=== PATIENT | male | born 1965 | race Hispanic/Latino ===

== ENCOUNTER 2018-11-06 21:26 | Emergency (ER) | payer SELFPAY ==
[2018-11-06 21:26] VITALS: BMI 20.9
[2018-11-06 22:45] LABS: URINE BILIRUBIN NEGATIVE (NEGATIVE); URINE BLOOD NEGATIVE (NEGATIVE); URINE CALCIUM OXALATE CRYSTALS MOD /hpf (<OCC); URINE CLARITY Clear (Clear); URINE COLOR Yellow (YELLOW); URINE GLUCOSE (UA) NORMAL (Normal); URINE LEUKOCYTE ESTERASE NEG Leu/uL (Negative); URINE PROTEIN NEGATIVE (NEGATIVE)
[2018-11-06 22:52] LABS: BASO # 0.1 K/uL (0.0-0.2); BASO % 0.9 % (0.0-2.0); EOS # 0.2 K/uL (0.0-0.7); EOS % 3.5 % (0.0-4.0); HEMOGLOBIN 11.1 g/dL (12.0-18.0); LYMPH # 1.5 K/uL (1.0-4.3); LYMPH % 25.6 % (20.0-40.0); MEAN CORPUSCULAR HEMOGLOBIN 31.3 pg (27.0-31.0); MEAN CORPUSCULAR HGB CONC 33.6 g/dL (33.0-37.0); MEAN PLATELET VOLUME 7.9 fL (7.2-11.7); MONO # 0.4 K/uL (0.0-0.8); MONO % 7.2 % (0.0-10.0); NEUT # 3.6 K/uL (1.8-7.0); NEUT % 62.8 % (50.0-75.0); RBC 3.55 Mil/uL (4.40-5.90); RED CELL DISTRIBUTION WIDTH 12.6 % (11.5-14.5); WHITE BLOOD COUNT 5.7 K/uL (4.8-10.8)
[2018-11-06 22:57] LABS: BARBITURATES, UR NEGATIVE (NEGATIVE); BENZODIAZEPINES, UR NEGATIVE (NEGATIVE); PHENCYCLIDINE, UR NEGATIVE (NEGATIVE)
[2018-11-06 23:00] LABS: OPIATES, UR POSITIVE (NEGATIVE)
[2018-11-06 23:08] LABS: ALB/GLOB RATIO 1.3 (1.0-2.1); ALBUMIN 4.3 g/dL (3.5-5.0); ALT/SGPT 26 U/L (21-72); AST/SGOT 47 U/L (17-59); BLOOD UREA NITROGEN 19 mg/dL (9-20); CALCIUM 9.4 mg/dl (8.6-10.4); GFR NON-AFRICAN AMERICAN > 60
--- NOTE | 2018-11-06 23:49 | C.PDOC ---
History Of Present Illness 53 year old male brought in by EMS for public intoxication and acting bizarre in the street. As per EMS, patient was vacillating between somnolent and hyper aggressive behavior. Upon arrival patient was loud, agitated, hyper aggressive, but cooperative. Denies any complaints or heroin/opiod use. Time Seen by Provider: 11/06/18 21:33 Chief Complaint (Nursing): Substance Abuse History Per: Patient, EMS History/Exam Limitations: no limitations Onset/Duration Of Symptoms: Hrs Current Symptoms Are (Timing): Still Present Involuntary Hold By: None Recent travel outside of the [place]: No Past Medical History Reviewed: Historical Data, Nursing Documentation, Vital Signs Vital Signs: Last Vital Signs Temp 98.1 F 11/06/18 21:36 Pulse 77 11/06/18 21:36 Resp 20 11/06/18 21:36 BP 127/79 11/06/18 21:36 Pulse Ox 97 11/06/18 21:36 - Medical History PMH: Back Problems (hx. surgery), Bronchitis Denies: HIV, HTN, Chronic Kidney Disease, Seizures, Sexually Transmitted Disease Surgical History: Back Surgery (herniated disc), Hernia Repair - [facility] Procedures INJECT/INFUSE NEC (10/27/14) TETANUS TOXOID ADMINIST (02/03/14) Family History: States: CAD - Social History Hx Tobacco Use: Yes Hx Alcohol Use: Yes Hx Substance Use: Yes - Immunization History Hx Tetanus Toxoid Vaccination: No Hx Influenza Vaccination: No Hx Pneumococcal Vaccination: No Review Of Systems Review Of Systems: ROS cannot be obtained secondary to pt's inabilty to answer questions. (Due to intoxication) Physical Exam - Physical Exam Appears: Non-toxic Skin: Warm, Other (Excoriated lesions to bilateral arms and legs) Head: Atraumatic, Normacephalic Eye(s): bilateral: Normal Inspection Oral Mucosa: Moist Teeth: Other (Poor dentition) Chest: Symmetrical, No Tenderness Cardiovascular: Rhythm Regular Respiratory: Normal Breath Sounds, No Rales, No Rhonchi, No Wheezing Gastrointestinal/Abdominal: Soft, No Tenderness Neurological/Psych: Other (AAO) ED Course And Treatment - Laboratory Results Result Diagrams: 11/06/18 22:49 11/06/18 22:38 Lab Results: Total Bilirubin 0.5 mg/dL (0.2-1.3) 11/06/18 22:38 AST 47 U/L (17-59) 11/06/18 22:38 ALT 26 U/L (21-72) 11/06/18 22:38 Alkaline Phosphatase 105 U/L (38-126) 11/06/18 22:38 Total Protein 7.6 g/dL (6.3-8.3) 11/06/18 22:38 Albumin 4.3 g/dL (3.5-5.0) 11/06/18 22:38 Globulin 3.3 gm/dL (2.2-3.9) 11/06/18 22:38 Albumin/Globulin Ratio 1.3 (1.0-2.1) 11/06/18 22:38 Urine Color Yellow (YELLOW) 11/06/18 22:38 Urine Clarity Clear (Clear) 11/06/18 22:38 Urine pH 5.0 (5.0-8.0) 11/06/18 22:38 Ur Specific [place] 1.025 (1.003-1.030) 11/06/18 22:38 Urine Protein Negative mg/dL (NEGATIVE) 11/06/18 22:38 Urine Glucose (UA) Normal mg/dL (Normal) 11/06/18 22:38 Urine Ketones Negative mg/dL (NEGATIVE) 11/06/18 22:38 Urine Blood Negative (NEGATIVE) 11/06/18 22:38 Urine Nitrate Negative (NEGATIVE) 11/06/18 22:38 Urine Bilirubin Negative (NEGATIVE) 11/06/18 22:38 Urine Urobilinogen 4.0 mg/dL (0.2-1.0) 11/06/18 22:38 Ur Leukocyte Esterase Neg Bruce/uL (Negative) 11/06/18 22:38 Urine WBC (Auto) 3 /hpf (0-5) 11/06/18 22:38 Urine RBC (Auto) 2 /hpf (0-3) 11/06/18 22:38 Calcium Oxalate Crystal Mod /hpf (<OCC) H 11/06/18 22:38 Hyaline Casts 3-5 /lpf (0-2) H 11/06/18 22:38 O2 Sat by Pulse Oximetry: 97 (Room air) Pulse Ox Interpretation: Normal Medical Decision Making Medical Decision Making: Patient initially very aggressive but after a while has been sleeping. Lab results were positive for opiods and ETOH, will be endorsed over to Dr. Lockwood pending sobriety and final dispo. Disposition - Disposition Disposition Time: 23:56 Condition: GUARDED Forms: [facility] (Telugu) - Clinical Impression Clinical Impression: Drug abuse, Alcohol dependence, Drug dependence - Scribe Statement The provider has reviewed the documentation as recorded by the Scribe Giorgio Doshi All medical record entries made by the Scribe were at my direction and personally dictated by me. I have reviewed the chart and agree that the record accurately reflects my personal performance of the history, physical exam, medical decision making, and the department course for this patient. I have also personally directed, reviewed, and agree with the discharge instructions and disposition. Physician Patient Turnover Patient Signed Over To: Joyce Lockwood Handoff Comments: pending re-eval and final dispo
[2018-11-07 00:53] VITALS: RESP 16
[2018-11-07 05:01] VITALS: BP 128/79; PULSE 66; TEMP 98.7; O2SAT 97
== END 2018-11-07 05:00 | disposition home or self-care (01) ==
LOC: C.ER 21:26
DX: F10.20 Alcohol dependence, uncomplicated (principal); F11.20 Opioid dependence, uncomplicated; Y90.6 Blood alcohol level of 120-199 mg/100 ml
CPT/HCPCS: 80053; 81001; 82948; 83735; 84100; 85025; 99284; G0480